=== PATIENT | female | born 1995 ===

== ENCOUNTER 2021-07-03 22:22 | Emergency (ER) | payer SELFPAY ==
[~2021-07-03] VITALS: Ht 165.1 cm; Wt 75.0 kg
[2021-07-03 23:15] VITALS: BP 133/89
== END 2021-07-03 23:19 | disposition home or self-care (01) ==
LOC: ER 22:22
DX: F10.129 Alcohol abuse with intoxication, unspecified (principal); Y90.9 Presence of alcohol in blood, level not specified; F41.9 Anxiety disorder, unspecified; R00.0 Tachycardia, unspecified; F19.10 Other psychoactive substance abuse, uncomplicated
CPT/HCPCS: 99283